=== PATIENT | male | born 1995 | race Caucasian/White ===

== ENCOUNTER 2024-10-22 04:15 | Emergency (ER) | payer OTHER ==
[~2024-10-22] VITALS: Ht 175.3 cm; Wt 83.9 kg
[2024-10-22 04:30] VITALS: O2SAT 98
[2024-10-22] MEDS ORDERED: SULF1TAB48 PO (04:39)
[2024-10-22] MEDS ORDERED: SULFAMETH/TRIMETH 800/160 MG TABLET ONE (04:40)
[2024-10-22] MEDS: SULFAMETH/TRIMETH 800/160 MG TABLET PO ONE (04:42)
== END 2024-10-22 04:45 | disposition home or self-care (01) ==
LOC: ER 04:40
DX: L08.89 Other specified local infections of the skin and subcutaneous tissue (principal); F17.210 Nicotine dependence, cigarettes, uncomplicated
CPT/HCPCS: A4606; A4663